=== PATIENT | female | born 1960 | race Caucasian/White ===

== ENCOUNTER 2020-02-10 07:36 | Emergency (ER) | payer BC ==
--- NOTE | 2020-02-10 08:07 | EDM.PDOC ---
ED HPI GENERAL MEDICAL PROBLEM - General Chief Complaint: General Stated Complaint: R wrist pain Time Seen by Provider: 02/10/20 08:00 Source of Information: Reports: Patient, Old Records ([facility] EMR. No paper hospital chart available.) History Limitations: Reports: No Limitations - History of Present Illness INITIAL COMMENTS - FREE TEXT/NARRATIVE: The patient walked into the emergency room for evaluation of a Workmen's Compensation injury, which occurred at 7:30 AM this morning. The patient was walking to the bathroom when she accidentally tripped on her pant leg landing on her right wrist with 5/10 throbbing wrist pain. No medication or treatment prior to arrival. She is right-handed and has not injured this wrist in the past. The patient also complains of mild right lower 5/10 back spasms with known history of chronic low back pain. She denies any head injury, neurological deficits, paresthesias or other complaints or injuries. No recent history of abdominal pain, heartburn, nausea, diarrhea, melena, gross hematochezia, or any food intolerance, including fatty foods, etc.. The patient also denies any recent fever, cough, wheezing, dyspnea, etc.. Onset: Today, Sudden Duration: Constant Location: Reports: Back, Upper Extremity, Right. 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: Other (see below) (None) Right Wrist Pain Score (Numeric/FACES): 5 Right Lower Back Pain Score (Numeric/FACES): 5 - Related Data Allergies Allergy/AdvReac Type Severity Reaction Status Date / Time shellfish derived Allergy Other Verified 02/10/20 07:45 Home Meds: Home Meds Acarbose 50 mg PO TID 02/10/20 [History] Calcium Carbonate/Vitamin D3 [Calcium 600-Vit D3 400 Tablet] 2 each PO BID 02/10/20 [History] Cholecalciferol (Vitamin D3) [Vitamin D3] 1,000 unit PO DAILY 02/10/20 [History] Cyclobenzaprine [Flexeril] 10 mg PO TID PRN #30 tab 02/10/20 [Rx] Denosumab [Prolia] 60 mg SUBCUT Q180D 02/10/20 [History] Escitalopram Oxalate [Lexapro] 20 mg PO DAILY 02/10/20 [History] Fluticasone Propionate [Flonase] 2 sprays NS DAILY 02/10/20 [History] Levothyroxine 75 mcg PO ACBREAKFAST 02/10/20 [History] Magnesium Oxide [Magnesium] 500 mg PO DAILY 02/10/20 [History] Montelukast [Singulair] 10 mg PO DAILY 02/10/20 [History] QUEtiapine Fumarate [Seroquel] 200 mg PO BEDTIME 02/10/20 [History] Triamcinolone Acetonide 15 gm TP ASDIRECTED PRN 02/10/20 [History] Vit B12/Folic Acid/B6/Aa No.15 [Glycotrol] 1 each PO DAILY 02/10/20 [History] buPROPion [buPROPion XL] 150 mg PO DAILY 02/10/20 [History] busPIRone [Buspar] 10 mg PO TID 02/10/20 [History] Past Medical History HEENT History: Reports: Allergic Rhinitis, Impaired Vision, Other (See Below) Other HEENT History: Patient wears glasses. Gastrointestinal History: Reports: Diverticulosis FORENSIC PSYCHIATRIST History: Reports: Dysfunctional Uterine Bleeding, Fibroids, . Denies: Spontaneous : 1 Para: 1 LMP (Approximate): Other (See Below) Other FORENSIC PSYCHIATRIST History: Surgical menopause secondary to dysfunctional uterine bleeding/fibroids. Full term delivery without complications during pregnancies or deliveries, although required secondary to small pelvis. Musculoskeletal History: Reports: Back Pain, Chronic, Fracture, Neck Pain, Chronic, Osteoarthritis, Osteoporosis, Other (See Below) Other Musculoskeletal History: Scoliosis with chronic low back pain including previous epidural steroid injections and surgeries as below. Left fifth metatarsal fracture in about 1999. Psychiatric History: Reports: Anxiety, Depression. Denies: Psych Hospitalization(s), Suicide Attempt, Suicidal Ideation Endocrine/Metabolic History: Reports: Hypomagnesemia, Hypothyroidism, Obesity/BMI 30+, Osteopenia, Osteoporosis. Denies: IDDM Hematologic History: Reports: Anemia, Other (See Below). Denies: Blood Transfusion(s) Other Hematologic History: Anemia secondary to dysfunctional uterine bleeding. Dermatologic History: Reports: Other (See Below) Other Dermatologic History: Allergic dermatitis. - Past Surgical History HEENT Surgical History: Reports: Oral Surgery, Other (See Below) Other HEENT Surgeries/Procedures: [place] teeth extraction x2 in 1991. GI Surgical History: Reports: Appendectomy, Cholecystectomy, Colonoscopy. Denies: EGD, Hernia, Abdominal, Hernia, Inguinal, Hernia Repair/Other, Polypectomy Other GI Surgeries/Procedures: Colonoscopy at age 54. Laparoscopic cholecystectomy with additional concomitant appendectomy in 2002. Gastric bypass Marjorie-en-Y surgery in 2011. Female Surgical History: Reports: Section, Hysterectomy, Salpingo- Oophorectomy, Other (See Below) Other Female Surgeries/Procedures: Complete hysterectomy with bilateral salpingo-oophorectomy secondary to dysfunctional uterine bleeding at age 46 on 05/13/2006. Neurological Surgical History: Reports: Discectomy, Laminectomy, Lumbar Spine, Other (See Below) Other Neurological Surgeries/Procedures: Laminectomy/discectomy at L2-L3 initia lly in 1987 and then in 1989. 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 ED EXAM, GENERAL - Physical Exam Exam: See Below Exam Limited By: No Limitations General Appearance: Alert, WD/WN, No Apparent Distress Head: Atraumatic, Normocephalic. No: Facial Swelling, Facial Tenderness, Sinus Tenderness Neck: Normal Inspection, Supple, Non-Tender, Full Range of Motion. No: Carotid Bruit, Lymphadenopathy (L), Lymphadenopathy (R), Thyromegaly Respiratory/Chest: No Respiratory Distress, Lungs Clear, Normal Breath Sounds, No Accessory Muscle Use, Chest Non-Tender. No: Pleural Rub, Retractions Cardiovascular: Normal Peripheral Pulses, Regular Rate, Rhythm, No Edema, No Gallop, No JVD, No Murmur, No Rub. No: Gallop/S3, Gallop/S4, Friction Rub Peripheral Pulses: 2+: Radial (L), Radial (R) GI/Abdominal: Normal Bowel Sounds, Soft, Non-Tender, No Organomegaly, No Distention, No Abnormal Bruit, No Mass, Pelvis Stable, Other (Obese). No: Guarding (Female) Exam: Deferred Rectal (Female) Exam: Deferred Back Exam: Full Range of Motion, Muscle Spasm (Mild right lower lumbar), Paraspinal Tenderness (Right lower lumbar). No: CVA Tenderness (L), CVA Tenderness (R), Vertebral Tenderness Extremities: No Pedal Edema, Normal Capillary Refill, Joint Swelling (Mild right wrist), Arm Pain (Mild to moderate palpation pain over distal right radius with no crepitation, deformity, etc. No snuffbox tenderness), Limited Range of Motion (Right wrist secondary to pain). No: Mony's Sign Neurological: Alert, Oriented, CN II-XII Intact, Normal Cognition, Normal Gait, No Motor/Sensory Deficits Psychiatric: Normal Affect, Normal Mood Skin Exam: Warm, Dry, Intact, Normal Color, No Rash. No: Diaphoretic, Ecchymosis, Wound/Incision Lymphatic: No Adenopathy ED GENERAL MEDICAL PROCEDURES - Splinting Right Upper Extremity Splint Site: Short arm palmar splint Pre-procedure NV status: Normal Post-procedure NV status: Normal Splint Type: Custom Splint Material: Other (4 inch x 15 inch padded fiberglass splint cut to fit with one 2 inch and one 4 inch Jas wrap used to secure the splint) Splint Design: Volar (Short arm as above) Applied & Form Fitted By: Provider Provider Post-Splint Application NV Check: NV Status Normal, Good Position Complications: No Course - Vital Signs Last Recorded V/S: Last Vital Signs Temp 35.3 C L 02/10/20 07:36 Pulse 79 02/10/20 07:36 Resp 16 02/10/20 07:36 BP 117/74 02/10/20 07:36 Pulse Ox 99 02/10/20 07:36 Vital Signs - 24 hr 02/10/20 07:36 Temperature [ 35.3 C L Temporal] Pulse, 79 Peripheral [ Pulse Oximetry] Respiratory 16 Rate Blood Pressure 117/74 [Left] O2 Sat by Pulse 99 Oximetry - Orders/Labs/Meds Orders: Active Orders 24 hr Category Date Time Status Lumbar Spine 2 or 3V [CR] Stat Exams 02/10/20 08:19 Taken Wrist Comp Min 3V Rt [CR] Stat Exams 02/10/20 07:45 Taken Obtain Past Medical Record [OM.PC] Routine Oth 02/10/20 08:07 Active Labs: None Meds: Medications Discontinued Medications Generic Name Dose Route Start Last Admin Trade Name Freq PRN Reason Stop Dose Admin Ibuprofen 600 mg 02/10/20 08:41 02/10/20 08:45 Motrin PO 02/10/20 08:42 600 mg ONETIME ONE Administration - Radiology Interpretation Free Text/Narrative:: X-rays of the right wrist, complete, shows evidence of a comminuted minimally displaced distal right radial fracture with mild joint effusion. Moderate osteoarthritic and mild osteoporotic changes were noted. X-rays of the lumbar spine, 3 views, shows no evidence of acute injury with moderate osteoarthritic and mild osteoporotic changes, including vertebral body spurs and some decreased lordosis. Departure - Departure Time of Disposition: 09:10 Disposition: Home, Self-Care 01 Condition: Good Clinical Impression: Hypothyroidism (acquired), Mixed anxiety depressive disorder Wrist fracture, right Qualifiers: Encounter type: initial encounter Fracture type: closed Qualified Code(s): S62.101A - Fracture of unspecified carpal bone, right wrist, initial encounter for closed fracture Low back pain Qualifiers: Chronicity: acute Back pain laterality: right Sciatica presence: without sciatica Qualified Code(s): M54.5 - Low back pain Osteoarthritis Qualifiers: Osteoarthritis location: multiple joints Osteoarthritis type: primary Qualified Code(s): M89.49 - Other hypertrophic osteoarthropathy, multiple sites - Discharge Information *PRESCRIPTION DRUG MONITORING PROGRAM REVIEWED*: Not Applicable *COPY OF PRESCRIPTION DRUG MONITORING REPORT IN PATIENT GABBY: Not Applicable Prescriptions: Cyclobenzaprine [Flexeril] 10 mg PO TID PRN #30 tab PRN Reason: Spasms Instructions: Cast or Splint Care, Adult, [id number], Wrist Fracture Treated With Immobilization, [id number] Referrals: Ricarda Be NP [Primary Care Provider] - Forms: ED Department Discharge, ED Return to Work/School Form Additional Instructions: 1. Followup with your regular provider in 7 days as directed for reevaluation and repeat x-rays of your right wrist with probable short arm cast placement at that time. Bring these discharge instructions with you to that visit. 2. Tylenol 650 mg by mouth every 4 hours and/or OTC ibuprofen 2-3 tabs by mouth every 6 hours with food as directed./needed. You may stagger these medications for 48-72 hours only, which essentially means that you are receiving a pain medication about every 2 hours. Next dose of ibuprofen in 6 hours as needed secondary to medications given in the emergency room. 3. Ice packs, arm elevation, etc. as discussed with short arm palmar splint to be used at all times until cast placement as above. 4. BenGay or equivalent, heating pad, and/or ice packs as directed. 5. Sedation, dry mouth, confusion, etc. precautions with Flexeril as discussed. Initially try using only 1/2 tablet rather than an entire tablet. 6. Work excuse- See Form 7. Immediately after this visit verify that your cellular telephone's voicemail has been activated and is empty. Also verify that your home telephone's answering machine is operating properly and has space to receive messages. Note that it is sometimes necessary for us to be able to contact you at a later date to discuss your medical care. 8. Please remember that we are ALWAYS here for you and want to answer any questions you may have. Feel free to call the hospital any time and we call you back NARCISO. Sepsis Event Note (ED) - Evaluation Sepsis Screening Result: No Definite Risk - Focused Exam Vital Signs: Vital Signs Temp Pulse Resp BP Pulse Ox 02/10/20 07:36 35.3 C L 79 16 117/74 99 - Problem List & Annotations (1) Wrist fracture, right SNOMED Code(s): 677242521, 409032695 Code(s): S62.101A - FRACTURE OF UNSP CARPAL BONE, RIGHT WRIST, INIT FOR CLOS FX Status: Acute Priority: High Onset Date: 02/10/20 Annotation/Comment:: Short arm palmar splint placed as above. Symptomatic relief as per discharge instructions. Patient did not wish to have IM Toradol with oral ibuprofen given during emergency room care. Work excuse and Workmen's Compensation forms were completed. Activity restrictions, splint care, etc. were extensively discussed. Close follow-up by regular provider as per discharge instructions. Qualifiers: Encounter type: initial encounter Fracture type: closed Qualified Code(s): S62.101A - Fracture of unspecified carpal bone, right wrist, initial encounter for closed fracture (2) Low back pain SNOMED Code(s): 014783189 Code(s): M54.5 - LOW BACK PAIN Status: Acute Priority: High Onset Date: 02/10/20 Annotation/Comment:: Acute exacerbation of her chronic low back pain with no evidence of significant injury. Note last steroid epidural injection in January 2020 by her history. Symptomatic relief as per discharge instructions. Flexeril was prescribed with sedation precautions given. She was cautioned about the possible interaction of this medication with her other current medications. Qualifiers: Chronicity: acute Back pain laterality: right Sciatica presence: without sciatica Qualified Code(s): M54.5 - Low back pain (3) Osteoarthritis SNOMED Code(s): 222727032 Code(s): M19.90 - UNSPECIFIED OSTEOARTHRITIS, UNSPECIFIED SITE Status: Chronic Priority: Medium Annotation/Comment:: Otherwise stable by history Qualifiers: Osteoarthritis location: multiple joints Osteoarthritis type: primary Qualified Code(s): M89.49 - Other hypertrophic osteoarthropathy, multiple sites (4) Hypothyroidism (acquired) SNOMED Code(s): 255632176 Code(s): E03.9 - HYPOTHYROIDISM, UNSPECIFIED Status: Chronic Priority: Medium Annotation/Comment:: Currently under therapy (5) Mixed anxiety depressive disorder SNOMED Code(s): 348163669 Code(s): F41.8 - OTHER SPECIFIED ANXIETY DISORDERS Status: Chronic Priority: Medium Annotation/Comment:: Stable by history with current medical therapy. - Problem List Review Problem List Initiated/Reviewed/Updated: Yes - My Orders Last 24 Hours: My Active Orders 02/10/20 07:45 Wrist Comp Min 3V Rt [CR] Stat 02/10/20 08:07 Obtain Past Medical Record [OM.PC] Routine 02/10/20 08:19 Lumbar Spine 2 or 3V [CR] Stat - Assessment/Plan Last 24 Hours: My Active Orders 02/10/20 07:45 Wrist Comp Min 3V Rt [CR] Stat 02/10/20 08:07 Obtain Past Medical Record [OM.PC] Routine 02/10/20 08:19 Lumbar Spine 2 or 3V [CR] Stat Assessment:: As above Plan: As above. Extensive precautions were given to the patient, who is in agreement with the treatment plan. See Patient Instructions for further treatment and plan.
[2020-02-10] MEDS ORDERED: Ibuprofen 600 MG Tab PO ONE (08:41)
== END 2020-02-10 09:10 | disposition home or self-care (01) ==
LOC: LL.ED 07:36
DX: S52.571A Other intraarticular fracture of lower end of right radius, initial encounter for closed fracture (principal); M41.9 Scoliosis, unspecified; E03.9 Hypothyroidism, unspecified; M89.49 Other hypertrophic osteoarthropathy, multiple sites; E66.9 Obesity, unspecified; Z68.34 Body mass index [BMI] 34.0-34.9, adult; F41.9 Anxiety disorder, unspecified; F32.9 Major depressive disorder, single episode, unspecified; M54.5 Low back pain; F41.8 Other specified anxiety disorders; Z91.013 Allergy to seafood; Z79.899 Other long term (current) drug therapy; W01.0XXA Fall on same level from slipping, tripping and stumbling without subsequent striking against object, initial encounter; Y99.0 Civilian activity done for income or pay
CPT/HCPCS: 29125; 72100; 73110; 99284; A9270; 99283-25